=== PATIENT | female | born 1995 | race Two or more races ===

== ENCOUNTER 2020-04-27 23:57 | Emergency (ER) | payer SELFPAY ==
[~2020-04-27] VITALS: Ht 157.5 cm; Wt 79.4 kg
[2020-04-28 00:24] VITALS: BP 136/84
== END 2020-04-28 02:41 | disposition left against medical advice (07) ==
LOC: ER 04-28
DX: M25.512 Pain in left shoulder (principal); Z53.21 Procedure and treatment not carried out due to patient leaving prior to being seen by health care provider